=== PATIENT | female | born 1980 ===

== ENCOUNTER 2023-10-04 06:08 | Day surgery (SDC) | payer OTHER ==
[2023-10-03 13:53] VITALS: BMI 41.1
[2023-10-04] MEDS ORDERED: Bupivacaine 0.25% HCL 30 ML VIAL ONE (06:33)
[2023-10-04] MEDS ORDERED: EPINEPHrine 1 MG/ML VIAL ONE (06:33)
[2023-10-04] MEDS ORDERED: CEFAZOLIN 2 GM VIAL ONE (06:37)
[2023-10-04] MEDS ORDERED: Sodium Chloride 0.9% 100 ML ONE (06:38)
[2023-10-04] MEDS ORDERED: fentaNYL PF 100 MCG/2 ML SYRINGE ONE (06:42)
[2023-10-04] MEDS ORDERED: PROPOFOL 20 ML ONE (06:42)
[2023-10-04] MEDS ORDERED: Midazolam HCl 2 mg/2 ml Vial ONE (06:42)
[2023-10-04] MEDS ORDERED: Rocuronium Bromide 10 MG/ML (10ML VIAL) ONE (06:44)
[2023-10-04] MEDS ORDERED: Ondansetron PF 4 MG/2 ML Vial ONE (06:44)
[2023-10-04] MEDS ORDERED: Dexamethasone 20 MG/5 ML VIAL ONE (06:44)
[2023-10-04] MEDS ORDERED: Lidocaine 1% PF 5 ML VIAL ONE (06:44)
[2023-10-04] MEDS ORDERED: Famotidine/PF 20 mg/2ml Vial ONE (07:01)
[2023-10-04] MEDS ORDERED: SUCCINYLCHOLINE/SOD CL,ISO/PF 200 MG/10 ML SYRINGE FS ONE (07:32)
[2023-10-04] MEDS ORDERED: ePHEDrine Sulfate 50 MG/10 ML VIAL ONE (07:40)
[2023-10-04] MEDS ORDERED: SUGAMMADEX SODIUM 200 MG/2 ML VIAL ONE (08:23)
[2023-10-04] MEDS ORDERED: Ketorolac Tromethamine 30 MG (1 mL) VIAL ONE (08:26)
[2023-10-04] MEDS ORDERED: Fentanyl 250 MCG/5 ML VIAL ONE (08:54)
[2023-10-04] MEDS ORDERED: Meperidine HCl/PF 25 MG (1 mL) VIAL ONE (08:57)
[2023-10-04] MEDS ORDERED: HYDROcodone/Acetaminophen 5/325 mg Tablet ONE ×2 (10:11→11:19)
== END 2023-10-04 11:30 | disposition home or self-care (01) ==
LOC: EEVIPCON → SDC 06:08
PROVIDERS: ATTEND Surgery
PROC: 0WUF0JZ Supplement Abdominal Wall with Synthetic Substitute, Open Approach (ICD-10-PCS; principal; 2023-10-04)
DX: K43.2 Incisional hernia without obstruction or gangrene (principal); F41.9 Anxiety disorder, unspecified; Z87.891 Personal history of nicotine dependence
CPT/HCPCS: A4314; C1781; J0171; J1100; J1885; J2175; J2250; J2405; J2704; J3010; J3490; S0020; S0028